=== PATIENT | male | born 1965 | race Caucasian/White ===

== ENCOUNTER 2018-08-30 14:57 | Emergency (ER) | payer BC ==
[2018-08-30] MEDS: SOD CHLORIDE 0.9% 1,000 ML IV (17:23)
[2018-08-30] MEDS: morphine 4 MG/ML VIAL IV (17:24)
[2018-08-30] MEDS: PIPER-TAZO 3.375 GM IV (PMX) 100 ML IVPB (17:24)
[2018-08-30] MEDS: ONDANSETRON 4 MG INJ IV (17:24)
[2018-08-30 17:35] LABS: ADD MAN DIFF? NO
[2018-08-30 17:40] LABS: WHITE BLOOD COUNT 11.3 10^3/ul (4.8-10.8)
[2018-08-30 17:40] LABS: BASOPHIL # 0.1 10^3/ul (0.0-0.1); BASOPHILS % 0.5 % (0.0-2.0); EOSINOPHILS # 0.1 10^3/ul (0.0-0.5); EOSINOPHILS % 1.2 % (0.0-7.0); HEMATOCRIT 46.6 % (42.0-52.0); HEMOGLOBIN 15.9 g/dl (14.0-18.0); LYMPHOCYTES % 18.1 % (15.0-51.0); MEAN CORPUSCULAR HEMOGLOBIN 30.8 pg (29.0-33.0); MEAN CORPUSCULAR HGB CONC 34.1 g/dl (32.0-37.0); MEAN CORPUSCULAR VOLUME 90.3 fl (82.0-101.0); MEAN PLATELET VOLUME 10.1 fl (7.4-10.4); MONOCYTE # 0.9 10^3/ul (0.3-0.9); MONOCYTES % 8.1 % (0.0-11.0); NEUTROPHIL # 8.1 10^3/ul (1.6-7.5); NEUTROPHILS % 71.7 % (39.0-77.0); PLATELET COUNT 244 10^3/UL (140-415); RED BLOOD COUNT 5.16 10^6/ul (4.70-6.10); RED CELL DISTRIBUTION WIDTH 11.9 % (11.5-14.5)
[2018-08-30 17:57] LABS: ANION GAP 13 (5-13); BLOOD UREA NITROGEN 16 mg/dl (7-20); CALCIUM 9.3 mg/dl (8.4-10.2); CARBON DIOXIDE 24 mmol/L (21-31); CHLORIDE 104 mmol/L (97-110); CREATININE 0.95 mg/dl (0.61-1.24); Estimated GFR > 60 mL/min (>60); GLUCOSE 151 mg/dl (70-220); LIPASE 75 U/L (23-300); POTASSIUM 4.1 mmol/L (3.5-5.1); SODIUM 141 mmol/L (135-144)
[2018-08-30] MEDS: IOHEXOL 300MG/ML 150 ML BTL (18:25)
[2018-08-30] MEDS: SOD CHLORIDE 0.9% 100 ML (18:26)
[2018-08-30 18:42] LABS: URINE BLOOD (Dip) POC Negative (NEGATIVE); URINE GLUCOSE (Dip) POC Negative (NEGATIVE); URINE KETONES (Dip) POC Negative (NEGATIVE); URINE LEUKOCYTE EST (Dip) POC Negative (NEGATIVE); URINE NITRITE (Dip) POC Negative (NEGATIVE); URINE TOTAL PROTEIN POC Negative (NEGATIVE)
[2018-08-30] MEDS: HYDROmorphONE 2 MG/ML SYG IV (19:18)
[2018-08-30] MEDS: ONDANSETRON (ODT) 4 MG TAB ODT (19:19)
[2018-08-30] MEDS: LIDOCAINE 1% (MPF) 5 ML VIAL INFIL (19:39)
== END 2018-08-30 20:20 | disposition home or self-care (01) ==
LOC: FTE 14:57
DX: K61.0 Anal abscess (principal)
CPT/HCPCS: 36415; 74177; 80048; 81003; 83690; 85025; 96365; 96375; 99285-25